=== PATIENT | male | born 1950 | race Caucasian/White ===

== ENCOUNTER → 2016-12-15 | Outpatient (CLI) | payer MEDICARE, OTHER ==
[~2016-12-15] MED LIST: ACET1TAB86 PO; AMIO200T PO; ASPI325T PO; COEN100C; COMMODE 3-IN-11 MIS; DOCU1CAP39 PO; METO25TA3 PO; NITR0.4S SL; OMEG1CAP53 PO; PRAV10TA PO; SIMV5TAB3 PO; THERM PO; VITA100036 PO
[2016-12-15 13:07] LABS: ANION GAP 7 MEQ/L (5-15); AST (GOT) 22 U/L (15-37); BICARBONATE 26.7 MEQ/L (21.0-32.0); BLOOD UREA NITROGEN 17 MG/DL (7-18); CHLORIDE 106 MEQ/L (98-107); GLOMERULAR FILTRATION RATE 91 ML/MIN (>89); GLUCOSE,FASTING 93 MG/DL (74-99); POTASSIUM 4.7 MEQ/L (3.5-5.1); SODIUM (NA) 140 MEQ/L (136-145)
[2016-12-15 13:14] LABS: ALKALINE PHOSPHATASE 49 U/L (45-117); ALT (GPT) 46 U/L (12-78); HDL CHOLESTEROL 30.4 MG/DL (40.0-60.0); LDL CHOLESTEROL 83 MG/DL (0-99); TOTAL BILIRUBIN ADULT 0.6 MG/DL (0.2-1.0)
[2016-12-15 13:32] LABS: HEMATOCRIT 46.9 % (39.0-51.0); MEAN CELL VOLUME 86.9 FL (80.0-100.0); MEAN CORPUSCULAR HEMOGLOBIN 29.6 PG (27.0-34.0); PLATELET COUNT 175 TH/MM3 (150-450); REVIEW FLAG FINAL; WHITE BLOOD COUNT 7.1 TH/MM3 (4.0-11.0)
== END ==
LOC: PLAB 08:11
PROVIDERS: ATTEND Psychiatry & Neurology Neurology
DX: I63.30 Cerebral infarction due to thrombosis of unspecified cerebral artery (principal); I63.50 Cerebral infarction due to unspecified occlusion or stenosis of unspecified cerebral artery; M31.6 Other giant cell arteritis; Z68.29 Body mass index [BMI] 29.0-29.9, adult; E78.5 Hyperlipidemia, unspecified; I10 Essential (primary) hypertension; I70.213 Atherosclerosis of native arteries of extremities with intermittent claudication, bilateral legs; I71.4 Abdominal aortic aneurysm, without rupture
CPT/HCPCS: 36415; 80053; 80061; 82607; 83921; 84443; 85027

== ENCOUNTER → 2017-02-03 | Outpatient (CLI) | payer MEDICARE, OTHER ==
[2017-02-03 13:18] LABS: ALKALINE PHOSPHATASE 55 U/L (45-117); ALT (GPT) 44 U/L (12-78); ANION GAP 7 MEQ/L (5-15); AST (GOT) 20 U/L (15-37); BICARBONATE 26.7 MEQ/L (21.0-32.0); BLOOD UREA NITROGEN 18 MG/DL (7-18); CHLORIDE 106 MEQ/L (98-107); GLOMERULAR FILTRATION RATE 84 ML/MIN (>89); GLUCOSE,FASTING 94 MG/DL (74-99); HDL CHOLESTEROL 37.9 MG/DL (40.0-60.0); LDL CHOLESTEROL 79 MG/DL (0-99); POTASSIUM 4.4 MEQ/L (3.5-5.1); SODIUM (NA) 140 MEQ/L (136-145); TOTAL BILIRUBIN ADULT 1.1 MG/DL (0.2-1.0)
== END ==
LOC: PLAB 08:53
PROVIDERS: ATTEND Internal Medicine Interventional Cardiology
DX: I65.23 Occlusion and stenosis of bilateral carotid arteries (principal); E78.2 Mixed hyperlipidemia; Z79.899 Other long term (current) drug therapy
CPT/HCPCS: 36415; 80053; 80061

== ENCOUNTER 2017-02-15 08:59 | Inpatient (IN) | payer MEDICARE, OTHER ==
[2017-02-15] VITALS (10 sets, daily range): BP systolic 136–159; BP diastolic 97–104; PULSE 63–98; RESP 18; TEMP 98–99; O2SAT 97–98
[~2017-02-15] VITALS: Ht 170.2 cm; Wt 92.9 kg
[~2017-02-15 08:59] MED LIST changes: -ACET1TAB86 PO; -AMIO200T PO; -COMMODE 3-IN-11 MIS; -DOCU1CAP39 PO; -NITR0.4S SL; -PRAV10TA PO; -SIMV5TAB3 PO; -THERM PO
[2017-02-15] MEDS ORDERED: ASPIRIN 325 MG TAB PO SCH (09:30)
[2017-02-15] MEDS ORDERED: SIMV5TAB3 PO (09:44)
[2017-02-15] MEDS ORDERED: NITR0.4S SL (09:44)
[2017-02-15] MEDS: NS 1000P @30 MLS/HR (KVO) IV SCH ×2 (10:00→16:34)
[2017-02-15 10:02] LABS: AUTOMATED NEUTROPHIL # 4.3 TH/MM3 (1.8-7.7); BASOPHIL # 0.1 TH/MM3 (0-0.2); BASOPHIL % 0.9 % (0.0-2.0); EOSINOPHIL # 0.2 TH/MM3 (0-0.4); EOSINOPHIL % 2.2 % (0.0-4.0); HEMATOCRIT 45.8 % (39.0-51.0); HEMO FLAGS DIFF FINAL; LYMPH % 27.7 % (9.0-44.0); LYMPHOCYTE # 1.9 TH/MM3 (1.0-4.8); MEAN CELL VOLUME 86.3 FL (80.0-100.0); MEAN CORPUSCULAR HEMOGLOBIN 29.2 PG (27.0-34.0); MEAN CORPUSCULAR HGB CONC 33.8 % (32.0-36.0); MONO % 7.7 % (0.0-8.0); NEUT % 61.5 % (16.0-70.0); PLATELET COUNT 177 TH/MM3 (150-450); RED BLOOD COUNT 5.31 MIL/MM3 (4.50-5.90); RED CELL DISTRIBUTION WIDTH 13.8 % (11.6-17.2)
[2017-02-15 10:10] LABS: APTT (PATIENT) 28.1 SEC (24.3-30.1); PROTHROMBIN TIME - PATIENT 11.5 SEC (9.8-11.6)
[2017-02-15 10:26] LABS: BICARBONATE 24.7 MEQ/L (21.0-32.0)
[2017-02-15] MEDS ORDERED: HEPARIN-NS/PF INJ 500 ML ONE (10:26)
[2017-02-15] MEDS ORDERED: diphenhydrAMINE HCL 50 MG/ML VIAL ONE (10:27)
[2017-02-15 10:29] LABS: POTASSIUM 4.8 MEQ/L (3.5-5.1)
[2017-02-15] MEDS ORDERED: HEPARIN SODIUM - IV 10,000 UNITS/10 ML VIAL ONE (10:37)
[2017-02-15] MEDS ORDERED: PROTAMINE SULFATE 50 MG/5 ML VIAL ONE (11:20)
[2017-02-15] MEDS ORDERED: NITROGLYCERIN 2% OINT 1 GM PACKET ONE (11:27)
--- NOTE | 2017-02-15 11:30 | EKG ---
Date Performed: 02/15/2017 Time Performed: 09:57:02 PTAGE: 66 years EKG: Sinus rhythm with PAC(s). Possible inferior infarct - age undetermined Abnormal ECG NO PREVIOUS TRACING DOCTOR: Naman Stevenson Interpretating Date/Time 02/15/2017 11:28:09
[2017-02-15] MEDS ORDERED: CEFAZOLIN INJ 500 MG in SODIUM CHLORIDE 0.9% IRR BTL 500 ML IRRIGATION SCH (12:15)
[2017-02-15] MEDS ORDERED: INSULIN REGULAR (IV INFUSION) 100 UNITS in SODIUM CHLORIDE 0.9% INJ 100 ML IV SCH (12:15)
[2017-02-15] MEDS ORDERED: ceFAZolin 2 GM PREMIX 50 ML IV SCH (12:15)
[2017-02-15] MEDS ORDERED: METOPROLOL TARTRATE 25 MG TAB PO SCH (12:15)
[2017-02-15] MEDS ORDERED: CHLORHEXIDINE GLUCONATE 4% SOLN 120 ML BTL TOPICAL SCH (12:15)
[2017-02-15] MEDS ORDERED: PAPAVERINE INJ 60 MG, NITROGLYCERIN INJ 100 MCG, DILTIAZEM INJ 100 MG in SODIUM CHLORID... IRRIGATION SCH (12:15)
[2017-02-15] MEDS ORDERED: SODIUM CHLORIDE 0.9% FLUSH 10 ML FLUSH IV FLUSH PRN ×2 (12:15→12:30)
[2017-02-15] MEDS ORDERED: NITROGLYCERIN 0.4 MG SL 25 TABS/BTL SL PRN (12:30)
[2017-02-15] MEDS ORDERED: NALOXONE HCL 0.4 MG/ML AMP IV PRN (12:30)
[2017-02-15] MEDS ORDERED: ONDANSETRON HCL 4 MG/2 ML VIAL IVP PRN (12:30)
[2017-02-15] MEDS ORDERED: ACETAMINOPHEN 325 MG TAB PO PRN (12:30)
[2017-02-15] MEDS ORDERED: MAGNESIUM HYDROXIDE SUSP 30 ML CUP PO PRN (12:30)
--- NOTE | 2017-02-15 13:07 | PD.CAR.PN ---
CVT Progress Note Subjective/Hospital Course: pt seen and evaluated, full consultation to follow for CABG x 3 in am sts data discussed with pt RISK SCORES About the STS Risk Calculator Procedure: CAB Only Risk of Mortality: 1.072% Morbidity or Mortality: 11.943% Long Length of Stay: 4.647% Short Length of Stay: 49.285% Permanent Stroke: 1.809% Prolonged Ventilation: 7.853% DSW Infection: 0.386% Renal Failure: 1.27% Reoperation: 5.345% Objective: Vital Signs Date Time Temp Pulse Resp B/P Pulse Ox O2 Delivery O2 Flow Rate FiO2 02/15/17 11:53 99 Room Air 02/15/17 09:52 99.0 74 18 159/104 98 Labs: Laboratory Tests Test 02/15/17 09:46 White Blood Count 7.0 TH/MM3 (4.0-11.0) Red Blood Count 5.31 MIL/MM3 (4.50-5.90) Hemoglobin 15.5 GM/DL (13.0-17.0) Hematocrit 45.8 % (39.0-51.0) Mean Corpuscular Volume 86.3 FL (80.0-100.0) Mean Corpuscular Hemoglobin 29.2 PG (27.0-34.0) Mean Corpuscular Hemoglobin 33.8 % Concent (32.0-36.0) Red Cell Distribution Width 13.8 % (11.6-17.2) Platelet Count 177 TH/MM3 (150-450) Mean Platelet Volume 7.9 FL (7.0-11.0) Neutrophils (%) (Auto) 61.5 % (16.0-70.0) Lymphocytes (%) (Auto) 27.7 % (9.0-44.0) Monocytes (%) (Auto) 7.7 % (0.0-8.0) Eosinophils (%) (Auto) 2.2 % (0.0-4.0) Basophils (%) (Auto) 0.9 % (0.0-2.0) Neutrophils # (Auto) 4.3 TH/MM3 (1.8-7.7) Lymphocytes # (Auto) 1.9 TH/MM3 (1.0-4.8) Monocytes # (Auto) 0.5 TH/MM3 (0-0.9) Eosinophils # (Auto) 0.2 TH/MM3 (0-0.4) Basophils # (Auto) 0.1 TH/MM3 (0-0.2) CBC Comment DIFF FINAL Differential Comment Prothrombin Time 11.5 SEC (9.8-11.6) Prothromb Time International 1.0 RATIO Ratio Activated Partial 28.1 SEC Thromboplast Time (24.3-30.1) Sodium Level 140 MEQ/L (136-145) Potassium Level 4.8 MEQ/L (3.5-5.1) Chloride Level 107 MEQ/L (98-107) Carbon Dioxide Level 24.7 MEQ/L (21.0-32.0) Anion Gap 8 MEQ/L (5-15) Blood Urea Nitrogen 15 MG/DL (7-18) Creatinine 0.81 MG/DL (0.60-1.30) Estimat Glomerular Filtration 95 ML/MIN (>89) Rate Random Glucose 95 MG/DL (74-106) Calcium Level 10.0 MG/DL (8.5-10.1) Result Diagram: 02/15/17 0946 02/15/17 0946 Idalia Renteria February 15, 2017 13:07
--- NOTE | 2017-02-15 13:29 | MA ---
cc: MANUEL APPLE M.D., MANDEEP MD SUTTON, JAMES T. M.D. MARRESE, ROXY M.D. DATE OF PROCEDURE 02/15/2017 PROCEDURE 1. Left heart cath. 2. Coronary arteriogram. 3. Left ventriculogram. INVENTORY CONTROL/SHIPPING RECEIVING Manuel Apple MD INDICATION Progressive angina and abnormal nuclear stress study for inferior lateral wall ischemia with severe ischemia in that area. EQUIPMENT 6-Icelandic short sheath. 0.035 J guidewire. 6-Icelandic JL-4, JR-4 and pigtail diagnostic catheters. PROCEDURE After obtaining informed consent the right groin was prepped in the usual sterile fashion. 15 cc of 1% lidocaine were used for local anesthesia. Using the modified Seldinger technique the right femoral artery was cannulated and a 6-Icelandic short sheath was inserted in the right femoral artery. Using the above-mentioned diagnostic catheters selective coronary angiograms were performed. This was followed by left ventriculogram performed in the ROSEN view at ___ angle. The patient was given 6000 units of heparin accidentally in the sheath instead of 1000. Repeat ACT was 277 and this was partially reversed using protamine of 40 milligrams for the sheath to be pulled. The patient tolerated the procedure well without acute complication at the time of dictation. CARDIAC CATHETERIZATION FINDINGS HEMODYNAMIC Aortic pressure was 150/70 mmHg. Aortic pressure was 96 mmHg. There was no gradient across the aortic valve. Left ventricular end-diastolic pressure was around 20 mmHg. CORONARIES Right coronary was from right sinus of Valsalva, was quite tortuous and calcified. It is subtotal occlusion in the midportion with possibly a thrombus. The distal portion had a 60-70% disease, then it gave decent size PDA and PLV arteries. The PDA was small and tapered off quickly. The PLV was relatively good size with multiple smaller branches. With diffuse irregularities of 20-30%. The distal RCA was getting collaterals from the left system. Left main artery was left sinus of Valsalva. This had a distal 30% stenosis. Left circumflex branch from the left main artery is an ostial 10%, tortuous mid-area that was totally occluded OM ___ occlusion at the origin with collaterals filling from the LAD. The circumflex extended distally to give two small PLV branches and a tiny AV groove artery with mild diffuse irregularities. This mid-OM was filling with collaterals from the LAD and appears to be a decent target. Left anterior descending artery branched from the left main artery and tapered down in the midportion by about 30-40% distal to the origin of the mid diagonal branch, there was an 80 to 85% stenosis. The distal vessel was a descent target. There was a 40% disease distal to that, distal to the mid lesion, however, the distal vessel was extended to wrap around the apex. The mid diagonal had an ostial 30-40% and mild luminal irregularities of less than 20%, gave other diagonal septal branches with mild diffuse regularities of 20-30%. Left ventriculogram had multiple ectopic beats. There is mild diffuse hypokinesis but preserved LV systolic function. Ejection fraction visual estimates 50%. CONCLUSION CARDIAC CATHETERIZATION. 1. Significant triple vessel disease. 2. Low normal LV systolic function. 3. Elevated left ventricle end-diastolic pressure. RECOMMENDATIONS Evaluation for coronary artery bypass graft surgery with presumed grafts including TERRY to the LAD, SVG to OM of LCX and SVG to the distal RCA. Dr. Sarah Chery was contracted. MD CAROLE Moctezuma/LELO /11:31 AM /12:49 PM
--- NOTE | 2017-02-15 13:39 | MH ---
cc: SARAH CHERY DATE OF ADMISSION: 02/16/2017 DATE OF 1950 HISTORY OF PRESENT ILLNESS This is a 66 year-old male patient of Dr. Angelika Barnes, Dr. Garcia, Dr. Boo and Dr. Frances with a history of CVA in 2008 where he had some right leg weakness, some right arm weakness, uses a walker, had some slowed speech. Apparently was having some increased neurological symptoms and was evaluated by Dr. Frances. The patient was complaining of some bouts of shortness of breath not related to exertion and some throat tightness with some radiation to both shoulders. Apparently when he was riding his bike, he developed this throat tightness. He has had prior nuclear stress testing back in May of 2016 which had some borderline ST-segment depression, mild to moderate inferior lateral ischemia and then underwent cardiac cath. Because of the history of CVA, he has been following with Dr. Boo in regards to his carotid disease on the right internal carotid. He had a CTA of the carotids February 10, 2017 noted to be greater than 90% and recommended the cardiac cath to also be done and the evaluation of the coronary arteries prior to having the repair of his right carotid artery. He underwent cardiac cath today which showed left main 20% distal stenosis, mid distal LAD 80-85%, the OM 100%. The RCA 99% and the mid area EF of 50%. PAST MEDICAL HISTORY CVA in 2008 with right sided weakness and right arm weakness. He uses a walker. He has some slurring of his speech. His symptoms did initially improved and he apparently had some neurological symptoms that led to further follow up with Dr. Boo and Dr. Garcia. He had an MRI of the head in January 2016 revealing patent intracranial vessels. MRI of the brain was in 2016 and revealed an old area of infarct involving the basal ganglia on the left. No acute lesions. He is followed closely again by his neurologist and vascular surgeon. 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 He does not use oxygen and/or inhalers at home. PAST SURGICAL HISTORY Include: 1. Abdominal aortic aneurysm repair October 2010. 2. He has a stent in the right superficial femoral artery in 2008. 3. A deviated septum repair in 2009. 4. Colonoscopy 2003. ALLERGIES He has allergies to BACLOFEN, CRESTOR, LISINOPRIL, PLAVIX, PROCARDIA, LIPITOR, LOPRESSOR. He does, however, tolerate low-dose Simvastatin 5 mg and takes Lovaza. MEDICATIONS Home meds include: 1. Aspirin 325 p.o. daily 2. CO-Q10 3. Lovaza 1000 four times a day 4. Metoprolol 25 extended-release daily 5. Nitro 0.4 p.r.n. 6. Simvastatin 5 mg FAMILY HISTORY Father is alive at age of 92 with skin cancer history, throat cancer, prostate cancer. Mother from old age and Alzheimer's disease. SOCIAL HISTORY The patient is . He has one daughter he is estranged from. He does have a sister that will be his healthcare surrogate. Prior tobacco abuse. Smoked for a 35 pack-year history, quit eight years ago. No ETOH. He drinks about 8-10 cups of coffee per day. REVIEW OF SYSTEMS GENERAL: No night sweats, fever, heat and cold intolerance. SKIN: No psoriasis, itching or hives. HEENT: No blurred vision, hearing loss. RESPIRATORY: Occasional shortness of breath. CARDIOVASCULAR: As above in the HPI. GASTROINTESTINAL: No diarrhea or vomiting. GENITOURINARY: No burning frequency, urgency. EXPORT ADMINISTRATOR: No history of TIA. He has history of CVA. ENDOCRINOLOGY: No history of diabetes or hypothyroidism. PHYSICAL EXAM On exam, blood pressure 159/104, heart rate of 74, afebrile, O2 sat 98 on room air. Please note the patient did have a vagal response once they did follow right groin sheath out which was improved after an IV normal saline bolus. GENERAL: The patient is awake, alert in no acute distress. HEAD, EYES, EARS, NOSE, AND THROAT: Head is normocephalic, atraumatic. Pupils are equal and reactive. Oral mucosa pink, moist. NECK: Supple. No JVD. HEART: S1-S2 regular rate and rhythm. No rubs, murmurs, or gallops. LUNGS: Clear to auscultation. No wheezes, rales or rhonchi. ABDOMEN: Soft and nontender. No masses or organomegaly. EXTREMITIES: Reveal no cyanosis, clubbing or edema. I am only able to get Doppler pulses of his right and left posterior tibial arteries. LABORATORY FINDINGS Shows hemoglobin 15, hematocrit of 45, white cell count 7, platelet count 177. The sodium 140, potassium 4.8, BUN of 15, creatinine 0.8, glucose 95, INR 1.0. Further studies include an ultrasound of the lower extremities. He did have a CTA recently at [facility] which was discussed in the above. The left carotid artery was widely patent. IMPRESSION 1. This is a 66-year-old male with multivessel disease, also history of CVA, peripheral artery disease and history of right carotid stenosis. Procedures, alternatives and risks have been discussed with the patient. Planning will be for coronary artery bypass grafting in the a.m. In the meantime, we will can continue his home medications to control blood pressure. He is to continue on aspirin postsurgery. He is intolerant apparently to Plavix. 2. History of CVA. This will be discussed again further with Dr. Chery in regards to his right carotid stenosis and contacting Dr. Boo. EF on the cath was 50%, minimal and only trace valvular disease. Further planning per Dr. Sarah Chery. Dictated by SONYA Delgado MD OSMANI Morrissey/BROOKE /1:12 PM /11:22 AM
[2017-02-15] MEDS ORDERED: IOHEXOL 350 MG/ML 100 ML BTL (for Cath Lab) OTHER ONE (14:21)
--- NOTE | 2017-02-15 15:41 | RADRPT ---
EXAM DATE/TIME: 02/15/2017 13:29 [facility] COMPARISON: No previous studies available for comparison. INDICATIONS : PreOp cardiac surgery. MEDICAL HISTORY : Hyperlipidemia. Chest pressure. Abdominal aortic aneurysm. Hypertension. Asbestose exposure. PVD. SURGICAL HISTORY : Abdominal aortic aneurysm repair. ENCOUNTER: Initial ACUITY: 1 day PAIN SCORE: 0/10 LOCATION: Bilateral Legs TECHNIQUE: Venous ultrasound of the left and right leg was performed from the inguinal ligament to the proximal calf. Real-time, color Doppler and spectral tracing, compression and augmentation techniques were us ed. FINDINGS: RIGHT LEG: There is normal compressibility of the deep venous system from the inguinal region to the proximal ca lf. No echogenic clot is seen in the lumen of the common femoral, femoral, popliteal, and posterior tibial veins. There is a normal response of the venous system to proximal and distal augmentation an d respiration. LEFT LEG: There is normal compressibility of the deep venous system from the inguinal region to the proximal ca lf. No echogenic clot is seen in the lumen of the common femoral, femoral, popliteal, and posterior tibial veins. There is a normal response of the venous system to proximal and distal augmentation an d respiration. CONCLUSION: 1. No evidence of deep venous thrombosis. Walter Stubbs MD on February 15, 2017 at 15:39 Board Certified Radiologist. This report was verified electronically.
--- NOTE | 2017-02-15 15:49 | RADRPT ---
EXAM DATE/TIME: 02/15/2017 14:49 [facility] COMPARISON: No previous studies available for comparison. INDICATIONS : PreOp cardiac surgery. MEDICAL HISTORY : Hyperlipidemia. Chest pressure. Abdominal aortic aneurysm. Hypertension. Asbestose exposure. PVD. SURGICAL HISTORY : Abdominal aortic aneurysm repair. ENCOUNTER: Initial ACUITY: 1 day PAIN SCORE: 0/10 LOCATION: Bilateral Legs. GREATER SAPHENOUS VEIN THIGH: PROXIMAL: Right 6 mm Left 8 mm MID: Right 3 mm Left 2 mm DISTAL: Right 2 mm Left 2 mm CALF: PROXIMAL: Right 2 mm Left Non-visualized MID: Right 2 mm Left Non-visualized DISTAL: Right 1 mm Left Non-visualized FINDINGS: The venous system of the lower extremities are patent by color Doppler imaging. Measurements of the leg veins (in mm) are listed above. CONCLUSION: 1. Venous mapping as above Walter Stubbs MD on February 15, 2017 at 15:47 Board Certified Radiologist. This report was verified electronically.
[2017-02-15] MEDS: PRAVASTATIN SOD 10 MG TAB PO SCH (16:39)
[2017-02-15] MEDS: DOCUSATE SODIUM 100 MG CAP PO SCH ×2 (16:39→21:00)
[2017-02-15] MEDS: OMEGA 3 ACID ETHYL ESTERS PO SCH ×3 (17:04→21:00)
[2017-02-15 17:25] LABS: BLOOD, URINE NEG (NEG); COMMENT (UR) CULT NOT INDICATED; CULTURE IF INDICATED CULT NOT INDICATED; GLUCOSE,URINE NEG (NEG); KETONE, URINE NEG (NEG); MUCUS URINE FEW /lpf (OCC); NITRITE,URINE NEG (NEG); PH, URINE 6.5 (5.0-8.5); URINE COLOR LIGHT-YELLOW (YELLW/STRAW)
[2017-02-15 17:50] LABS: HEMOGLOBIN A1a 0.6 %; HEMOGLOBIN A1b 1.2 %; HEMOGLOBIN Ao 88.6 %; HEMOGLOBIN LA1C 1.8 %; HEMOGLOBIN P3 4.2 %
[2017-02-15] MEDS ORDERED: EPINEPHrine HCL (1:10,000) 1 MG/10 ML SYRINGE ONE (20:03)
[2017-02-15] MEDS ORDERED: ATROPINE SULFATE 1 MG/10 ML SYRINGE ONE (20:03)
[2017-02-15] MEDS: SODIUM CHLORIDE 0.9% FLUSH 10 ML FLUSH IV FLUSH SCH (21:00)
[2017-02-15] MEDS ORDERED: SODIUM CHLORIDE 0.9% FLUSH 10 ML FLUSH IV FLUSH SCH (21:00)
--- NOTE | 2017-02-15 21:03 | RADRPT ---
EXAM DATE/TIME: 02/15/2017 20:20 [facility] COMPARISON: No previous studies available for comparison. INDICATIONS : Evaluate for pneumothorax, pneumonia and communicable disease. Pre op CABG. MEDICAL HISTORY : Hyperlipidemia. Chest pressure. Abdominal aortic aneurysm. Hypertension. Asbestose exposure. PVD. SURGICAL HISTORY : Abdominal aortic aneurysm repair. Cardiac catherization. ENCOUNTER: Initial ACUITY: 1 day PAIN SCORE: 0/10 LOCATION: chest FINDINGS: The cardiac silhouette is enlarged in transverse diameter. The lungs are free of acute parenchymal op acity. No effusions are identified. Osseous structures are intact. CONCLUSION: Cardiomegaly. No acute cardiopulmonary disease. Walter Stubbs MD on February 15, 2017 at 21:01 Board Certified Radiologist. This report was verified electronically.
[2017-02-16] VITALS (19 sets, daily range): BP systolic 89–150; BP diastolic 8–98; PULSE 60–94; RESP 12–18; TEMP 97.5–98.4; O2SAT 94–100
[2017-02-16] MEDS ORDERED: PHENYLEPHRINE HCL 10 MG/ML VIAL IV ONE (05:00)
[2017-02-16] MEDS ORDERED: PROTAMINE SULFATE 250 MG/25 ML VIAL IV ONE (05:00)
[2017-02-16] MEDS ORDERED: NITROGLYCERIN-DEXTROSE INJ 250 ML IV ONE (05:00)
[2017-02-16] MEDS ORDERED: ceFAZolin INJ 1,000 MG VIAL IV ONE (05:00)
[2017-02-16] MEDS ORDERED: HEPARIN SODIUM - SQ 10,000 UNITS/ML VIAL SQ ONE (05:00)
[2017-02-16] MEDS ORDERED: MAGNESIUM SULFATE 1000 MG/2 ML VIAL (PED) IV ONE (05:00)
[2017-02-16] MEDS ORDERED: CALCIUM CHLORIDE 10% SOLN 1 GRAM/10 ML SYR IV ONE (05:00)
[2017-02-16] MEDS ORDERED: AMIODARONE INJ 150 MG in DEXTROSE 5% IN WATER 100ML INJ 100 ML IV ONE ×2 (05:00)
[2017-02-16] MEDS ORDERED: ARTIFICIAL TEARS OPTH OINT 3.5 APPLIC/3.5 GM TUBO ONE (05:00)
[2017-02-16] MEDS ORDERED: AMINOCAPROIC ACID INJ 250 MG/ML 20 ML VIAL IV ONE (05:00)
[2017-02-16] MEDS ORDERED: ACETAMINOPHEN 1000 MG/100 ML VIAL IV ONE (05:00)
[2017-02-16] MEDS ORDERED: PROPOFOL 1000 MG/100 ML INJ 100 ML IV ONE (05:00)
[2017-02-16] MEDS ORDERED: ESMOLOL HCL 100 MG/10 ML VIAL IV ONE (05:00)
[2017-02-16] MEDS ORDERED: methylPREDNISolone SOD SUCC 125 MG/2 ML VIAL ONE (06:32)
[2017-02-16] MEDS ORDERED: ceFAZolin 2 GM PREMIX 50 ML ONE (06:32)
[2017-02-16] MEDS ORDERED: VANCOMYCIN HCL 1000 MG VIAL ONE (06:32)
[2017-02-16] MEDS ORDERED: HEPARIN SODIUM - SQ 10,000 UNITS/ML VIAL ONE (06:32)
[2017-02-16] MEDS ORDERED: CARDIOPLEGIC IRR 1,000 ML ONE (07:11)
[2017-02-16] MEDS ORDERED: HEPARIN SODIUM - IV 10,000 UNITS/10 ML VIAL ONE (07:11)
[2017-02-16] MEDS ORDERED: POTASSIUM CHLORIDE 20 MEQ/10 ML VIAL ONE (07:11)
[2017-02-16] MEDS ORDERED: POTASSIUM CHLORIDE 40 MEQ/20 ML VIAL ONE (07:12)
[2017-02-16] MEDS ORDERED: ALBUMIN HUMAN 25% 12.5 GM/50 ML BAGP IV ONE (07:13)
[2017-02-16] MEDS ORDERED: MANNITOL INJ 50 ML ONE (07:14)
[2017-02-16] MEDS ORDERED: PROPOFOL 500 MG/50 ML BTL IV ONE (08:48)
[2017-02-16] MEDS ORDERED: NITROGLYCERIN 50 MG/DEXTROSE 5% SOLN 250 ML BTL IV ONE (08:48)
[2017-02-16] MEDS ORDERED: VECURONIUM BROMIDE 20 MG VIAL IV ONE (08:49)
[2017-02-16] MEDS ORDERED: LACTATED RINGER'S 1000 ML INJ 1,000 ML IV ONE (08:49)
[2017-02-16] MEDS ORDERED: NORMOSOL R INJ 2,000 ML IV ONE (08:49)
[2017-02-16] MEDS: DOCUSATE SODIUM 100 MG CAP PO SCH ×2 (09:00→21:35)
[2017-02-16] MEDS: SODIUM CHLORIDE 0.9% FLUSH 10 ML FLUSH IV FLUSH SCH ×2 (09:00→21:00)
[2017-02-16] MEDS: OMEGA 3 ACID ETHYL ESTERS PO SCH ×4 (09:00→21:00)
[2017-02-16] MEDS ORDERED: METOPROLOL TARTRATE 25 MG TAB PO SCH (09:00)
[2017-02-16] MEDS: PRAVASTATIN SOD 10 MG TAB PO SCH (09:00)
[2017-02-16] MEDS ORDERED: LACTATED RINGER'S 1000 ML INJ 500 ML IV PRN (10:48)
--- NOTE | 2017-02-16 10:58 | PD.OP ---
cc: Manuel Frances MD; Sarah Chery MD Operative Report Date of Surgery: February 16, 2017 Preoperative Diagnosis: (1) Unstable angina (2) CAD (coronary artery disease) Postoperative Diagnosis: same Procedure: CABG x 3 TERRY to LAD - good SVG to OM - good SVG to RCA - good EVH SUKHJINDER Anesthesia: Dr. Dominguez Surgeon: Sraah Chery Welfare Officer(s): Sunday Bal Operation and Findings: The risks, benefits, complications, treatment options, and expected outcomes were discussed with the patient. The possibilities of reaction to medication, pulmonary aspiration, perforation of viscus, bleeding, recurrent infection, the need for additional procedures, failure to diagnose a condition, and creating a complication requiring transfusion or operation were discussed with the patient. The patient concurred with the proposed plan, giving informed consent. The site of surgery properly noted/marked. The patient was taken to Operating Room, identified as Jose Hopson and the procedure verified as CABG, EVH, SUKHJINDER. A Time Out was held and the above information confirmed. Standard monitoring lines and Ghosh catheter were placed. General anesthesia was induced. The patient was prepped and draped in a sterile fashion. A median sternotomy was performed and electrocautery was used to obtain hemostasis. The left internal mammary artery was procured as a pedicle from the 7th rib to the 1st rib in the usual manner. Simultaneously left greater saphenous vein was procured from the left leg using a minimally invasive endoscopic technique. The vein was prepared for anastomosis and the leg wound was irrigated and closed in 2 layers. The pericardium was opened and a pericardial sling was created using interrupted 0 silk sutures. The patient was heparinized for cardiopulmonary bypass and the distal mammary pedicle was instrumented for anastomosis. The heart was instrumented for cardiopulmonary bypass in the usual manner. Antegrade blood cardioplegia was employed. The patient was placed on cardiopulmonary bypass. An aortic cross-clamp was applied and the heart was arrested using cold blood cardioplegia. Antegrade cardioplegia was administered after he each anastomosis. After adequate arrest, the distal right coronary circulation was investigated and the distal RCA was opened with a [place] blade and found to be a 1.5 millimeter good target. Saphenous vein was approximated to the RCA artery using a running 7 0 Prolene suture. The graft was measured for length and orientation and the proximal anastomosis was constructed to the ascending aorta using a running 5 0 Prolene suture after creating an aortotomy with a 5 millimeter punch. The 1st circumflex marginal artery was then opened with a [place] blade and found to be a 1.5 millimeter good target. Saphenous vein was approximated to the OM1 artery using a running 7 0 Prolene suture. The graft was measured for length and orientation and was suspended from the pericardium. The distal LAD was opened with a [place] blade and found to be a 1.5 millimeter good target. The left internal mammary artery was approximated to the LAD using a running 7 0 Prolene suture. The pedicle was attached to the epicardium using interrupted 5 0 silk suture. The patient was systemically rewarmed and received a hotshot dose of warm blood cardioplegia. The aorta was vented and the proximal anastomosis to the OM1 graft was accomplished using a running 5 0 Prolene suture after creating an aortotomy was a 5 millimeter punch. The cross -clamp was removed and all proximal and distal anastomoses were examined for hemostasis. The patient was weaned from cardiopulmonary bypass. Protamine was given. There was no adverse reaction. Decannulation was carried out without incident. Wound was checked for hemostasis which was obtained using electrocautery. A 36 Georgian mediastinal and 32 Georgian left pleural chest tubes were placed and secured to the skin with 0 silk suture. The sternum was closed with stainless steel wire. The fascia was closed with 1. PDS. The subcutaneous tissue was closed using a running 2-0 Vicryl suture. The skin was closed with 4- 0 Monocryl. Sterile dressings were placed. At the end of the operation, all sponge, instruments, and needle counts were correct. The patient was transferred to the CICU in stable condition. Findings: good distal targets. The saphenous vein conduit was small in caliber XC: 60 min CPB: 67 min Drains: mediastinal x 1 pleural x 1 Complications: none Disposition: to CVICU in stable condition Sarah Chery MD February 16, 2017 10:58
[2017-02-16] MEDS: METOCLOPRAMIDE HCL 10 MG/2 ML VIAL IV PUSH SCH ×3 (11:00→21:35)
[2017-02-16] MEDS ORDERED: MAGNESIUM SULFATE INJ 2 GM in SODIUM CHLORIDE 0.9% INJ 100 ML IV PRN ×4 (11:00)
[2017-02-16] MEDS ORDERED: ACETAMINOPHEN 650 MG SUPP RECTAL PRN (11:00)
[2017-02-16] MEDS ORDERED: POTASSIUM CHLORIDE 20 MEQ CONTROLLED RELEASE TAB PO PRN ×2 (11:00)
[2017-02-16] MEDS ORDERED: hydrALAZINE HCL 20 MG/ML VIAL IV PRN (11:00)
[2017-02-16] MEDS ORDERED: METOPROLOL TARTRATE 5 MG/5 ML VIAL IV PUSH PRN (11:00)
[2017-02-16] MEDS ORDERED: ACETAMINOPHEN 325 MG TAB PO PRN (11:00)
[2017-02-16] MEDS ORDERED: DEXTROSE 50% IN WATER 50 ML VIAL(D50) IV PUSH PRN (11:00)
[2017-02-16] MEDS ORDERED: Post-op Orders (for Pharmacy) MISC OTHER ONE (11:00)
[2017-02-16] MEDS ORDERED: CALCIUM CHLORIDE INJ 1 GM in SODIUM CHLORIDE 0.9% INJ 100 ML IV PRN (11:00)
[2017-02-16] MEDS ORDERED: RESP: ALBUTEROL 2.5 MG/IPRATROPIUM 0.5 MG NEB (PRN) NEB ×2 (11:00→18:15)
[2017-02-16] MEDS ORDERED: INSULIN REGULAR (IV INFUSION) 100 UNITS in SODIUM CHLORIDE 0.9% INJ 99 ML IV SCH (11:00)
[2017-02-16] MEDS ORDERED: ONDANSETRON HCL 4 MG/2 ML VIAL IV PUSH PRN (11:00)
[2017-02-16] MEDS ORDERED: CALCIUM CHLORIDE 10% 1 GRAM/10 ML VIAL IV PRN (11:00)
[2017-02-16] MEDS ORDERED: CLEVIDIPINE INJ 50 ML IV SCH (11:00)
[2017-02-16] MEDS ORDERED: POTASSIUM CHLOR 20 MEQ PREMIX 100 ML IV PRN ×2 (11:00)
[2017-02-16] MEDS ORDERED: MIDAZOLAM HCL 5 MG/5 ML VIAL ONE (12:18)
[2017-02-16] MEDS ORDERED: SUGAMMADEX SODIUM 200 MG/2 ML VIAL IV PUSH ONE ×2 (12:19)
[2017-02-16] MEDS ORDERED: fentaNYL CITRATE 1000 MCG/20 ML VIAL ONE (12:19)
--- NOTE | 2017-02-16 12:30 | RADRPT ---
EXAM DATE/TIME: 02/16/2017 12:04 [facility] COMPARISON: No previous studies available for comparison. INDICATIONS : S/p cabg. MEDICAL HISTORY : Hypertension. chest pressure. SURGICAL HISTORY : abdominal aneurysm surgery. ENCOUNTER: Initial ACUITY: 1 day PAIN SCORE: Non-responsive. LOCATION: Bilateral chest FINDINGS: The cardiac silhouette is enlarged in transverse diameter. Median sternotomy wires are present. Suppo rt lines and tubes are in satisfactory position. The lungs are free of acute parenchymal opacity. No effusions are identified. CONCLUSION: 1. Stable postoperative changes Walter Stubbs MD on February 16, 2017 at 12:28 Board Certified Radiologist. This report was verified electronically.
[2017-02-16] MEDS: ACETAMINOPHEN 1000 MG/100 ML VIAL IV SCH ×3 (12:32→23:10)
[2017-02-16] MEDS: AMIODARONE 200 MG TAB PO SCH ×2 (15:49→21:35)
[2017-02-16] MEDS ORDERED: RESP: ALBUTEROL 2.5 MG/IPRATROPIUM 0.5 MG NEB (SCH) NEB (16:00)
[2017-02-16] MEDS ORDERED: PHENYLEPHRINE HCL 10 MG/ML VIAL ONE (17:36)
[2017-02-16] MEDS: POTASSIUM CHLOR 20 MEQ PREMIX 100 ML IV PRN ×2 (17:57→22:28)
[2017-02-16] MEDS ORDERED: PHENYLEPHRINE 40 MG/D5W 496 ML ADMIX IV SCH ×2 (18:00)
[2017-02-16] MEDS ORDERED: TERBUTALINE INJ 1 MG/ML AMP SQ PRN (18:00)
[2017-02-16] MEDS ORDERED: RESP: RACEPINEPHRINE 2.25% 0.5 ML NEB NEB PRN (18:15)
[2017-02-16] MEDS: oxyCODONE/ACETAMINOPHEN 5 MG/325 MG TAB PO PRN (21:35)
[2017-02-16] MEDS: RESP: ALBUTEROL 2.5 MG/IPRATROPIUM 0.5 MG NEB (SCH) NEB (21:53)
[2017-02-17] VITALS (12 sets, daily range): BP systolic 98–125; BP diastolic 51–75; PULSE 82–110; RESP 18–20; TEMP 98.1–98.4; O2SAT 94–98
[2017-02-17] MEDS: oxyCODONE/ACETAMINOPHEN 5 MG/325 MG TAB PO PRN ×3 (00:36→16:50)
[2017-02-17] MEDS: RESP: ALBUTEROL 2.5 MG/IPRATROPIUM 0.5 MG NEB (SCH) NEB ×3 (03:51→19:44)
--- NOTE | 2017-02-17 05:23 | RADRPT ---
EXAM DATE/TIME: 02/17/2017 04:34 [facility] COMPARISON: CHEST SINGLE AP, February 16, 2017, 12:04. INDICATIONS : Post CABG. MEDICAL HISTORY : Hypertension. Aneurysm, abdominal. Asbestos exposure. PVD. SURGICAL HISTORY : Abdominal aortic aneurysm repair. Cardiac catheterization. ENCOUNTER: Subsequent ACUITY: 3 days PAIN SCORE: Non-responsive. LOCATION: Bilateral chest FINDINGS: Interval extubation and removal of NG tube. Central and left chest tube remain. Right central line in superior vena cava. Mild basilar airspace disease persists. CONCLUSION: 1. Interval extubation and removal of NG tube. Chest tube and right central line unchanged. Mild basi lar airspace disease. Flip Esteban MD on February 17, 2017 at 5:21 Board Certified Radiologist. This report was verified electronically.
[2017-02-17 05:24] LABS: HEMATOCRIT 37.5 % (39.0-51.0); MEAN CELL VOLUME 86.1 FL (80.0-100.0); MEAN CORPUSCULAR HEMOGLOBIN 29.4 PG (27.0-34.0); MEAN CORPUSCULAR HGB CONC 34.2 % (32.0-36.0); PLATELET COUNT 187 TH/MM3 (150-450); RED BLOOD COUNT 4.36 MIL/MM3 (4.50-5.90); RED CELL DISTRIBUTION WIDTH 13.9 % (11.6-17.2); REVIEW FLAG FINAL
[2017-02-17 05:40] LABS: BICARBONATE 23.9 MEQ/L (21.0-32.0); POTASSIUM 4.1 MEQ/L (3.5-5.1)
[2017-02-17] MEDS: ACETAMINOPHEN 1000 MG/100 ML VIAL IV SCH (06:00)
[2017-02-17] MEDS: AMIODARONE 200 MG TAB PO SCH ×3 (06:05→21:08)
[2017-02-17] MEDS: PANTOPRAZOLE SOD 40 MG DELAYED RELEASE TAB PO SCH (06:05)
[2017-02-17] MEDS: METOCLOPRAMIDE HCL 10 MG/2 ML VIAL IV PUSH SCH ×4 (06:05→21:08)
[2017-02-17] MEDS: SODIUM CHLORIDE 0.9% FLUSH 10 ML FLUSH IV FLUSH SCH ×2 (08:28→21:00)
[2017-02-17] MEDS ORDERED: GLUCAGON 1 MG/ML VIAL OTHER PRN (08:45)
[2017-02-17] MEDS ORDERED: DEXTROSE 50% IN WATER 50 ML VIAL(D50) IV PRN (08:45)
[2017-02-17] MEDS ORDERED: INSULIN DETEMIR 100 UNITS/ML VIAL SQ ONE (08:45)
[2017-02-17] MEDS ORDERED: SOD PHOSPHATE/SOD BIPHOSPHATE (ADULT) ENEMA 133ML RECTAL PRN (08:45)
[2017-02-17] MEDS ORDERED: BISACODYL 10 MG SUPP RECTAL PRN (08:45)
[2017-02-17] MEDS: ASPIRIN 81 MG CHEW TAB PO SCH (08:53)
[2017-02-17] MEDS: DOCUSATE SODIUM 100 MG CAP PO SCH ×2 (08:53→21:08)
[2017-02-17] MEDS: PRAVASTATIN SOD 10 MG TAB PO SCH (08:54)
[2017-02-17] MEDS: OMEGA 3 ACID ETHYL ESTERS PO SCH ×4 (08:54→21:00)
[2017-02-17] MEDS: MAGNESIUM HYDROXIDE SUSP 30 ML CUP PO SCH (08:57)
[2017-02-17] MEDS: MULTIVITAMINS/MINERALS THERAPEUTIC TAB PO SCH (08:57)
[2017-02-17] MEDS ORDERED: PILL SPLITTER OTHER PRN (09:00)
[2017-02-17] MEDS ORDERED: DOCUSATE SODIUM 100 MG CAP PO SCH (09:00)
[2017-02-17] MEDS: INSULIN ASPART SUPPLEMENTAL SCALE SQ SCH ×4 (09:46→21:24)
[2017-02-17] MEDS: METOPROLOL TARTRATE 25 MG TAB PO SCH ×2 (12:15→21:09)
--- NOTE | 2017-02-17 15:26 | PD.CAR.PN ---
CVT Progress Note Subjective/Hospital Course: 66/ male increased recent weakness, SOB, chest tightness, underwent cardiac cath by Dr Frances 80-85% mid distal LAD, 100% OM, 99% mid RCA EF 50% PMH CVA min left sided weakness HTN, PAD, Right carotid stenosis ( followed by Dr Boo, needs future CEA ) HLP 02/16 CABG x 3, TERRY to LAD - good, SVG to OM - good, SVG to RCA - good, EVH, SUKHJINDER extubated after surgery 02/17 weaned off Bridger gtt this am start low dose BB this afternoon gentle diuresis this afternoon CM to eval for rehab at discharge on statin , BB , ASA transfer to stepdown Objective: GENERAL: SKIN: Warm and dry. prevena to chest , incision intact left leg HEAD: Normocephalic. EYES: No scleral icterus. No injection or drainage. NECK: Supple, trachea midline. No JVD or lymphadenopathy. CARDIOVASCULAR: Regular rate and rhythm without murmurs, gallops, or rubs. RESPIRATORY: Breath sounds equal bilaterally. No accessory muscle use. chest tube to wall suction/ no air leak drained 270cc/ 12 hrs GASTROINTESTINAL: Abdomen soft, non-tender, nondistended. MUSCULOSKELETAL: No cyanosis, or edema. BACK: Nontender without obvious deformity. No CVA tenderness. Vital Signs Date Time Temp Pulse Resp B/P Pulse Ox O2 Delivery O2 Flow Rate FiO2 02/17/17 07:00 94 Nasal Cannula 2.00 02/17/17 07:00 82 02/17/17 07:00 98.2 84 18 98/64 94 116/60 02/17/17 03:00 98.2 100 18 111/51 94 111/51 02/17/17 03:00 101 02/16/17 23:00 92 02/16/17 23:00 98.4 91 16 105/65 95 116/54 02/16/17 19:56 94 Nasal Cannula 2.00 02/16/17 19:00 94 Nasal Cannula 2.00 02/16/17 19:00 97.9 77 18 144/98 94 103/55 02/16/17 19:00 78 02/16/17 18:34 94 21 Labs: Laboratory Tests Test 02/17/17 04:50 White Blood Count 19.0 TH/MM3 (4.0-11.0) Red Blood Count 4.36 MIL/MM3 (4.50-5.90) Hemoglobin 12.8 GM/DL (13.0-17.0) Hematocrit 37.5 % (39.0-51.0) Mean Corpuscular Volume 86.1 FL (80.0-100.0) Mean Corpuscular Hemoglobin 29.4 PG (27.0-34.0) Mean Corpuscular Hemoglobin 34.2 % Concent (32.0-36.0) Red Cell Distribution Width 13.9 % (11.6-17.2) Platelet Count 187 TH/MM3 (150-450) Mean Platelet Volume 8.3 FL (7.0-11.0) Sodium Level 140 MEQ/L (136-145) Potassium Level 4.1 MEQ/L (3.5-5.1) Chloride Level 108 MEQ/L (98-107) Carbon Dioxide Level 23.9 MEQ/L (21.0-32.0) Anion Gap 8 MEQ/L (5-15) Blood Urea Nitrogen 12 MG/DL (7-18) Creatinine 0.76 MG/DL (0.60-1.30) Estimat Glomerular Filtration 103 ML/MIN Rate (>89) Random Glucose 122 MG/DL (74-106) Calcium Level 8.4 MG/DL (8.5-10.1) Magnesium Level 2.0 MG/DL (1.5-2.5) Result Diagram: 02/17/1744902/17/17449 Telemetry: NSR (1) CAD (coronary artery disease) (2) S/P CABG x 3 Plan: ASA, statin, BB gentle diuresis OOB/ ambulate pulm toileting nebs, ezpap acapella consult OT CM for rehab at discharge (3) CVA (cerebral infarction) Plan: has hx of right carotid stenosis / will need outpt f/u with Dr Boo (4) Hypertension Plan: controlled (5) Peripheral vascular disease (6) Hyperlipemia Plan: on statin Idalia Renteria February 17, 2017 15:26
--- NOTE | 2017-02-17 20:57 | EKG ---
Date Performed: 02/17/2017 Time Performed: 06:52:04 PTAGE: 66 years EKG: CONSIDER ACUTE ST ELEVATION AR Sinus arrhythmia Short FL interval Inferior infarct - age undetermined Lateral ST elevation, CONSIDER ACUTE INFARCT Abnormal ECG PREVIOUS TRACING : 02/15/2017 09.57 Compared to prior tracing no significant change DOCTOR: Denny Sellers Interpretating Date/Time 02/17/2017 20:55:57
[2017-02-17] MEDS: SENNOSIDES 8.6 MG TAB PO SCH (21:08)
[2017-02-18] VITALS (28 sets, daily range): BP systolic 104–141; BP diastolic 70–93; PULSE 72–114; RESP 18–20; TEMP 98.2–98.6; O2SAT 91–97
[2017-02-18] MEDS: oxyCODONE/ACETAMINOPHEN 5 MG/325 MG TAB PO PRN ×3 (00:23→18:00)
[2017-02-18] MEDS: INSULIN ASPART SUPPLEMENTAL SCALE SQ SCH ×5 (01:32→21:00)
[2017-02-18] MEDS: AMIODARONE 200 MG TAB PO SCH ×3 (05:27→21:58)
[2017-02-18] MEDS: METOCLOPRAMIDE HCL 10 MG/2 ML VIAL IV PUSH SCH ×4 (05:27→20:16)
[2017-02-18] MEDS: PANTOPRAZOLE SOD 40 MG DELAYED RELEASE TAB PO SCH (05:27)
[2017-02-18 05:57] LABS: AUTOMATED NEUTROPHIL # 8.6 TH/MM3 (1.8-7.7); BASOPHIL % 0.2 % (0.0-2.0); EOSINOPHIL % 0.3 % (0.0-4.0); HEMATOCRIT 30.2 % (39.0-51.0); HEMO FLAGS DIFF FINAL; LYMPH % 12.1 % (9.0-44.0); LYMPHOCYTE # 1.4 TH/MM3 (1.0-4.8); MEAN CELL VOLUME 86.3 FL (80.0-100.0); MEAN CORPUSCULAR HEMOGLOBIN 30.2 PG (27.0-34.0); MONO % 10.8 % (0.0-8.0); NEUT % 76.6 % (16.0-70.0); PLATELET COUNT 128 TH/MM3 (150-450); WHITE BLOOD COUNT 11.2 TH/MM3 (4.0-11.0)
[2017-02-18 06:10] LABS: BICARBONATE 25.4 MEQ/L (21.0-32.0); POTASSIUM 4.2 MEQ/L (3.5-5.1)
[2017-02-18] MEDS: RESP: ALBUTEROL 2.5 MG/IPRATROPIUM 0.5 MG NEB (SCH) NEB ×3 (08:37→19:39)
[2017-02-18] MEDS: MAGNESIUM HYDROXIDE SUSP 30 ML CUP PO SCH (09:00)
[2017-02-18] MEDS: PRAVASTATIN SOD 10 MG TAB PO SCH (09:00)
[2017-02-18] MEDS: OMEGA 3 ACID ETHYL ESTERS PO SCH ×4 (09:00→20:16)
--- NOTE | 2017-02-18 09:18 | PD.CAR.PN ---
CVT Progress Note Subjective/Hospital Course: 66/ male increased recent weakness, SOB, chest tightness, underwent cardiac cath by Dr Frances 80-85% mid distal LAD, 100% OM, 99% mid RCA EF 50% PMH CVA min left sided weakness HTN, PAD, Right carotid stenosis ( followed by Dr Boo, needs future CEA ) HLP 02/16 CABG x 3, TERRY to LAD - good, SVG to OM - good, SVG to RCA - good, EVH, SUKHJINDER extubated after surgery 02/17 weaned off Bridger gtt this am start low dose BB this afternoon gentle diuresis this afternoon CM to eval for rehab at discharge on statin , BB , ASA transfer to stepdown 02/[address] Drained 310 mls past 24 hrs Ambulate Objective: Vital Signs Date Time Temp Pulse Resp B/P Pulse Ox O2 Delivery O2 Flow Rate FiO2 02/18/17 08:40 95 Nasal Cannula 3.00 02/18/17 07:00 93 02/18/17 06:00 102 02/18/17 05:00 82 02/18/17 04:13 98.6 97 125/81 95 02/18/17 04:00 96 02/18/17 03:00 77 02/18/17 02:00 72 02/18/17 01:00 90 02/18/17 00:38 98.3 100 128/93 91 02/18/17 00:00 108 02/17/17 23:00 86 02/17/17 22:00 110 02/17/17 20:00 110 02/17/17 19:47 96 Nasal Cannula 2.00 02/17/17 19:00 98.3 91 108/73 96 02/17/17 19:00 Nasal Cannula 2.00 40 02/17/17 19:00 93 02/17/17 18:00 98 02/17/17 17:55 18 02/17/17 17:00 107 02/17/17 16:00 99 02/17/17 16:00 98.4 88 20 116/72 97 02/17/17 15:00 90 02/17/17 12:00 90 02/17/17 12:00 98.1 88 20 125/75 98 Arterial Line Labs: Laboratory Tests Test 02/18/17 05:45 White Blood Count 11.2 TH/MM3 (4.0-11.0) Red Blood Count 3.50 MIL/MM3 (4.50-5.90) Hemoglobin 10.6 GM/DL (13.0-17.0) Hematocrit 30.2 % (39.0-51.0) Mean Corpuscular Volume 86.3 FL (80.0-100.0) Mean Corpuscular Hemoglobin 30.2 PG (27.0-34.0) Mean Corpuscular Hemoglobin 35.0 % Concent (32.0-36.0) Red Cell Distribution Width 14.0 % (11.6-17.2) Platelet Count 128 TH/MM3 (150-450) Mean Platelet Volume 7.9 FL (7.0-11.0) Neutrophils (%) (Auto) 76.6 % (16.0-70.0) Lymphocytes (%) (Auto) 12.1 % (9.0-44.0) Monocytes (%) (Auto) 10.8 % (0.0-8.0) Eosinophils (%) (Auto) 0.3 % (0.0-4.0) Basophils (%) (Auto) 0.2 % (0.0-2.0) Neutrophils # (Auto) 8.6 TH/MM3 (1.8-7.7) Lymphocytes # (Auto) 1.4 TH/MM3 (1.0-4.8) Monocytes # (Auto) 1.2 TH/MM3 (0-0.9) Eosinophils # (Auto) 0.0 TH/MM3 (0-0.4) Basophils # (Auto) 0.0 TH/MM3 (0-0.2) CBC Comment DIFF FINAL Differential Comment Sodium Level 138 MEQ/L (136-145) Potassium Level 4.2 MEQ/L (3.5-5.1) Chloride Level 104 MEQ/L (98-107) Carbon Dioxide Level 25.4 MEQ/L (21.0-32.0) Anion Gap 9 MEQ/L (5-15) Blood Urea Nitrogen 14 MG/DL (7-18) Creatinine 0.65 MG/DL (0.60-1.30) Estimat Glomerular Filtration 123 ML/MIN Rate (>89) Random Glucose 116 MG/DL (74-106) Calcium Level 8.6 MG/DL (8.5-10.1) Magnesium Level 2.0 MG/DL (1.5-2.5) Result Diagram: 02/18/17 0545 02/18/17 0545 (1) CAD (coronary artery disease) (2) S/P CABG x 3 Plan: ASA, statin, BB gentle diuresis OOB/ ambulate pulm toileting nebs, ezpap acapella consult OT CM for rehab at discharge (3) CVA (cerebral infarction) Plan: has hx of right carotid stenosis / will need outpt f/u with Dr Boo (4) Hypertension Plan: controlled (5) Peripheral vascular disease (6) Hyperlipemia Plan: on statin Benjamin Delarosa MD February 18, 2017 09:18
[2017-02-18] MEDS: POLYETHYLENE GLYCOL 17 GM PKG PO SCH (09:47)
[2017-02-18] MEDS: METOPROLOL TARTRATE 25 MG TAB PO SCH ×2 (09:48→20:16)
[2017-02-18] MEDS: DOCUSATE SODIUM 100 MG CAP PO SCH ×2 (09:48→20:15)
[2017-02-18] MEDS: MULTIVITAMINS/MINERALS THERAPEUTIC TAB PO SCH (09:49)
[2017-02-18] MEDS: ASPIRIN 81 MG CHEW TAB PO SCH (09:49)
[2017-02-18] MEDS: SODIUM CHLORIDE 0.9% FLUSH 10 ML FLUSH IV FLUSH SCH ×2 (09:49→20:15)
[2017-02-18] MEDS: SENNOSIDES 8.6 MG TAB PO SCH (20:15)
[2017-02-19] VITALS (27 sets, daily range): BP systolic 96–146; BP diastolic 67–98; PULSE 73–102; RESP 14–23; TEMP 97.4–98.6; O2SAT 94–97
[2017-02-19] MEDS: INSULIN ASPART SUPPLEMENTAL SCALE SQ SCH ×4 (05:41→21:00)
[2017-02-19] MEDS: PANTOPRAZOLE SOD 40 MG DELAYED RELEASE TAB PO SCH (06:14)
[2017-02-19] MEDS: METOCLOPRAMIDE HCL 10 MG/2 ML VIAL IV PUSH SCH ×4 (06:14→21:38)
[2017-02-19] MEDS: AMIODARONE 200 MG TAB PO SCH ×3 (06:15→21:51)
[2017-02-19] MEDS: RESP: ALBUTEROL 2.5 MG/IPRATROPIUM 0.5 MG NEB (SCH) NEB (08:00)
[2017-02-19] MEDS: oxyCODONE/ACETAMINOPHEN 5 MG/325 MG TAB PO PRN ×2 (08:54→16:32)
[2017-02-19] MEDS: OMEGA 3 ACID ETHYL ESTERS PO SCH ×4 (09:00→21:00)
--- NOTE | 2017-02-19 09:00 | PD.CAR.PN ---
CVT Progress Note Subjective/Hospital Course: 66/ male increased recent weakness, SOB, chest tightness, underwent cardiac cath by Dr Frances 80-85% mid distal LAD, 100% OM, 99% mid RCA EF 50% PMH CVA min left sided weakness HTN, PAD, Right carotid stenosis ( followed by Dr Boo, needs future CEA ) HLP 02/16 CABG x 3, TERRY to LAD - good, SVG to OM - good, SVG to RCA - good, EVH, SUKHJINDER extubated after surgery 02/17 weaned off Bridger gtt this am start low dose BB this afternoon gentle diuresis this afternoon CM to eval for rehab at discharge on statin , BB , ASA transfer to stepdown 02/[address] Drained 310 mls past 24 hrs Ambulate 02/19 D/C CT today Ambulate Discharge planning Objective: Vital Signs Date Time Temp Pulse Resp B/P Pulse Ox O2 Delivery O2 Flow Rate FiO2 02/19/17 07:00 100 02/19/17 06:00 100 02/19/17 05:00 84 02/19/17 04:00 98.4 96 14 129/73 95 02/19/17 04:00 88 02/19/17 03:00 96 02/19/17 02:00 102 02/19/17 01:00 98.6 91 16 96/67 94 02/19/17 01:00 86 02/19/17 00:00 79 02/18/17 23:00 76 02/18/17 22:00 86 02/18/17 21:00 86 02/18/17 20:00 82 02/18/17 20:00 98.6 88 18 119/71 94 02/18/17 20:00 94 Nasal Cannula 2.00 02/18/17 19:40 96 Nasal Cannula 2.00 02/18/17 19:00 77 02/18/17 18:00 104 02/18/17 17:00 102 02/18/17 16:00 80 02/18/17 16:00 98.6 95 20 141/76 95 02/18/17 15:00 88 02/18/17 14:00 84 02/18/17 13:00 80 02/18/17 12:50 18 02/18/17 12:00 98.2 77 20 104/70 97 02/18/17 12:00 76 02/18/17 11:00 80 02/18/17 10:00 106 02/18/17 09:00 114 Result Diagram: 02/18/17 0545 02/18/17 0545 (1) CAD (coronary artery disease) (2) S/P CABG x 3 Plan: ASA, statin, BB gentle diuresis OOB/ ambulate pulm toileting nebs, ezpap acapella consult OT CM for rehab at discharge (3) CVA (cerebral infarction) Plan: has hx of right carotid stenosis / will need outpt f/u with Dr Boo (4) Hypertension Plan: controlled (5) Peripheral vascular disease (6) Hyperlipemia Plan: on statin Benjamin Delarosa MD February 19, 2017 09:00
[2017-02-19] MEDS: DOCUSATE SODIUM 100 MG CAP PO SCH ×2 (09:32→21:38)
[2017-02-19] MEDS: ASPIRIN 81 MG CHEW TAB PO SCH (09:33)
[2017-02-19] MEDS: PRAVASTATIN SOD 10 MG TAB PO SCH (09:33)
[2017-02-19] MEDS: MULTIVITAMINS/MINERALS THERAPEUTIC TAB PO SCH (09:33)
[2017-02-19] MEDS: METOPROLOL TARTRATE 25 MG TAB PO SCH ×2 (09:33→21:38)
[2017-02-19] MEDS: POLYETHYLENE GLYCOL 17 GM PKG PO SCH (09:34)
[2017-02-19] MEDS: MAGNESIUM HYDROXIDE SUSP 30 ML CUP PO SCH (09:34)
[2017-02-19] MEDS: SODIUM CHLORIDE 0.9% FLUSH 10 ML FLUSH IV FLUSH SCH ×2 (09:34→21:38)
[2017-02-19] MEDS: SENNOSIDES 8.6 MG TAB PO SCH (21:38)
[2017-02-20] VITALS (19 sets, daily range): BP systolic 123–165; BP diastolic 77–94; PULSE 60–90; RESP 14–16; TEMP 97.4–98.4; O2SAT 95–98
[2017-02-20] MEDS: AMIODARONE 200 MG TAB PO SCH ×2 (06:04→15:12)
[2017-02-20] MEDS: PANTOPRAZOLE SOD 40 MG DELAYED RELEASE TAB PO SCH (06:04)
[2017-02-20] MEDS: METOCLOPRAMIDE HCL 10 MG/2 ML VIAL IV PUSH SCH ×3 (06:04→15:13)
[2017-02-20] MEDS: INSULIN ASPART SUPPLEMENTAL SCALE SQ SCH ×2 (06:35→11:49)
[2017-02-20] MEDS: SODIUM CHLORIDE 0.9% FLUSH 10 ML FLUSH IV FLUSH SCH (09:29)
[2017-02-20] MEDS: ASPIRIN 81 MG CHEW TAB PO SCH (09:29)
[2017-02-20] MEDS: OMEGA 3 ACID ETHYL ESTERS PO SCH ×2 (09:29→13:15)
[2017-02-20] MEDS: DOCUSATE SODIUM 100 MG CAP PO SCH (09:29)
[2017-02-20] MEDS: POLYETHYLENE GLYCOL 17 GM PKG PO SCH (09:30)
[2017-02-20] MEDS: MAGNESIUM HYDROXIDE SUSP 30 ML CUP PO SCH (09:30)
[2017-02-20] MEDS: METOPROLOL TARTRATE 25 MG TAB PO SCH (09:30)
[2017-02-20] MEDS: MULTIVITAMINS/MINERALS THERAPEUTIC TAB PO SCH (09:30)
[2017-02-20] MEDS: PRAVASTATIN SOD 10 MG TAB PO SCH (09:30)
[2017-02-20] MEDS ORDERED: AMIO200T PO (14:50)
[2017-02-20] MEDS ORDERED: METO25TA3 PO (14:50)
[2017-02-20] MEDS ORDERED: THERM PO (14:50)
[2017-02-20] MEDS ORDERED: DOCU1CAP39 PO (14:50)
--- NOTE | 2017-02-20 14:57 | HHI.DS ---
Discharge Summary Admission Date February 16, 2017 at 08:30 Discharge Date: February 20, 2017 Admitting Diagnosis chest pain , CAD (1) CAD (coronary artery disease) Diagnosis: Principal (2) Hyperlipemia Diagnosis: Principal (3) Peripheral vascular disease Diagnosis: Principal (4) Hypertension Diagnosis: Principal (5) CVA (cerebral infarction) Diagnosis: Principal (6) S/P CABG x 3 Diagnosis: Secondary Procedures CABG x 3 02/16/17 TERRY to LAD - good SVG to OM - good SVG to RCA - good EVH Brief History 66/ male increased recent weakness, SOB, chest tightness, underwent cardiac cath by Dr Frances 80-85% mid distal LAD, 100% OM, 99% mid RCA EF 50% PMH CVA min left sided weakness HTN, PAD, Right carotid stenosis ( followed by Dr Boo, needs future CEA ) P 02/16 CABG x 3, TERRY to LAD - good, SVG to OM - good, SVG to RCA - good, EVH, SUKHJINDER extubated after surgery CBC/BMP: 02/18/17 0545 02/18/17 0545 Significant Findings Laboratory Tests Test 02/18/17 05:45 White Blood Count 11.2 TH/MM3 (4.0-11.0) Red Blood Count 3.50 MIL/MM3 (4.50-5.90) Hemoglobin 10.6 GM/DL (13.0-17.0) Hematocrit 30.2 % (39.0-51.0) Platelet Count 128 TH/MM3 (150-450) Neutrophils (%) (Auto) 76.6 % (16.0-70.0) Monocytes (%) (Auto) 10.8 % (0.0-8.0) Neutrophils # (Auto) 8.6 TH/MM3 (1.8-7.7) Monocytes # (Auto) 1.2 TH/MM3 (0-0.9) Random Glucose 116 MG/DL (74-106) Imaging Last Impressions Chest X-Ray 02/17/17 0500 Signed Impressions: Service Date/Time: Friday, February 17, 2017 04:34 - CONCLUSION: 1. Interval extubation and removal of NG tube. Chest tube and right central line unchanged. Mild basilar airspace disease. Flip Esteban MD Lower Extremity Ultrasound 02/15/17 0000 Signed Impressions: Service Date/Time: Wednesday, February 15, 2017 14:49 - CONCLUSION: 1. Venous mapping as above Walter Stubbs MD PE at Discharge GENERAL: SKIN: Warm and dry.prevena to chest , incision intact to leg HEAD: Normocephalic. EYES: No scleral icterus. No injection or drainage. NECK: Supple, trachea midline. No JVD or lymphadenopathy. CARDIOVASCULAR: Regular rate and rhythm without murmurs, gallops, or rubs. RESPIRATORY: Breath sounds equal bilaterally. No accessory muscle use. GASTROINTESTINAL: Abdomen soft, non-tender, nondistended. MUSCULOSKELETAL: No cyanosis, or edema. BACK: Nontender without obvious deformity. No CVA tenderness. Hospital Course 02/16 CABG x 3, TERRY to LAD - good, SVG to OM - good, SVG to RCA - good, EVH, SUKHJINDER extubated after surgery 02/17 weaned off Bridger gtt this am start low dose BB this afternoon gentle diuresis this afternoon CM to eval for rehab at discharge on statin , BB , ASA transfer to stepdown 02/[address] Drained 310 mls past 24 hrs Ambulate 02/19 D/C CT today Ambulate Discharge planning 02/20 doing well, on room air pain controlled + BM stable for dc to rehab today Pt Condition on Discharge: Good Discharge Disposition: Disch w/ Home Health Serv Discharge Instructions DIET: Follow Instructions for: Heart Healthy Diet Activities you can perform: Shower Only-No Bath Activities to avoid: Strenuous Activity, Driving Additional Activity Instructio: no lifting >8 lbs or gallon of milk Follow up Referrals: Cardiology with Manuel Frances MD PCP Follow-up with Angelika Barnes Jr., MD Surgical with Sarah Chery MD Vascular Surgery with Eleuterio Boo MD New Orders: BASIC METABOLIC PROF - 2 Weeks CBC NO DIFF - 2 Weeks X-RAY CHEST PA & LAT - 2 Weeks New Medications: Amiodarone (Amiodarone) 200 Mg Tab 200 MG PO BID heart rhythm #28 Ref 0 TAB Docusate Sodium (Dok) 100 Mg Cap 100 MG PO Q12HR Constipation #60 CAP Metoprolol Tartrate (Metoprolol Tartrate) 25 Mg Tab 12.5 MG PO BID Blood Pressure Management #60 Ref 2 TAB Multiple Vitamins W/ Minerals (Thera M Plus) 1 Tab 1 TAB PO DAILY multi vitamin #30 TAB Continued Medications: Aspirin (Aspirin) 325 Mg Tab 325 MG PO DAILY #30 Ref 0 TAB Cholecalciferol (Vitamin D3) 1,000 Unit Cap 1000 UNITS PO DAILY Nutritional Supplement #1 Ref 0 BOTTLE Coenzyme Q10 (Ubidecarenone) (Coenzyme Q10 (Ubidecarenone)) 100 Mg Cap DAILY [id number] Ethyl Esters (Lovaza) 1 Gm Cap 1 MG PO QID Ref 0 CAP Simvastatin (Simvastatin) 5 Mg Tab 5 MG PO DAILY Cholesterol Management #30 Ref 0 TAB Discontinued Medications: Metoprolol Tartrate (Metoprolol Tartrate) 25 Mg Tab 12.5 MG PO DAILY #30 Ref 0 TAB Nitroglycerin SL (Nitrostat SL) 0.4 Mg Subl 0.4 MG SL DIRECTED 1 tablet under the tongue as needed for chest pain. Repeat every 5 minutes for a total of 3 DOSES or call 911 if NO relief. PRN CHEST PAIN #100 Ref 0 TAB.SL Idalia Renteria February 20, 2017 14:56
--- NOTE | 2017-02-21 09:56 | RSPPFT ---
DATE OF PROCEDURE: 02/15/17 COMMENTS: Spirometry demonstrates an FEV1 of 2.5 at 87% of predicted, FVC of 3.2 at 89%, FEF 25-75 is 75%. The PEF is 73%. Flow volume loops are unavailable. IMPRESSION: 1. Essentially normal spirometry.
[2017-03-01] MEDS ORDERED: COMMODE 3-IN-11 MIS (15:52)
[2017-03-02] MEDS ORDERED: VITA100036 PO (11:22)
[2017-03-02] MEDS ORDERED: THERM PO (11:22)
[2017-03-02] MEDS ORDERED: DOCU1CAP39 PO (11:22)
[2017-03-02] MEDS ORDERED: PRAV10TA PO (11:22)
[2017-03-02] MEDS ORDERED: ASPI325T PO (11:22)
[2017-03-02] MEDS ORDERED: METO25TA3 PO (11:22)
[2017-03-02] MEDS ORDERED: AMIO200T PO (11:22)
[2017-03-03] MEDS ORDERED: ACET1TAB86 PO (08:03)
== END 2017-02-20 16:20 | DRG 234 ==
LOC: HDOC 08:59 → HDIC 09:01 → HCIN 12:19 → HDOC 12:19 → HCIN 15:54 → HCIS 02-16 07:55 → HDOC 02-16 08:28 → UNDOADMIN 02-16 08:30 → HCIS 02-16 08:30 → HCVR 02-16 11:45 → HCIN 02-17 10:34 → HCVR 02-17 10:34 → UNDODISIN 02-20 16:20
PROVIDERS: ADMIT Internal Medicine Interventional Cardiology; ATTEND Internal Medicine Interventional Cardiology
PROC: 4A023N7 Measurement of Cardiac Sampling and Pressure, Left Heart, Percutaneous Approach (ICD-10-PCS; 2017-02-15)
PROC: B2111ZZ Fluoroscopy of Multiple Coronary Arteries using Low Osmolar Contrast (ICD-10-PCS; 2017-02-15)
PROC: B2151ZZ Fluoroscopy of Left Heart using Low Osmolar Contrast (ICD-10-PCS; 2017-02-15)
PROC: 02100Z9 Bypass Coronary Artery, One Artery from Left Internal Mammary, Open Approach (ICD-10-PCS; 2017-02-16)
PROC: 06BQ4ZZ Excision of Left Saphenous Vein, Percutaneous Endoscopic Approach (ICD-10-PCS; 2017-02-16)
PROC: 5A1221Z Performance of Cardiac Output, Continuous (ICD-10-PCS; 2017-02-16)
PROC: B246ZZ4 Ultrasonography of Right and Left Heart, Transesophageal (ICD-10-PCS; 2017-02-16)
PROC: 021109W Bypass Coronary Artery, Two Arteries from Aorta with Autologous Venous Tissue, Open Approach (ICD-10-PCS; principal; 2017-02-16 06:57)
DX: I25.110 Atherosclerotic heart disease of native coronary artery with unstable angina pectoris (principal); I25.82 Chronic total occlusion of coronary artery; I69.351 Hemiplegia and hemiparesis following cerebral infarction affecting right dominant side; I69.928 Other speech and language deficits following unspecified cerebrovascular disease; I73.9 Peripheral vascular disease, unspecified; I65.21 Occlusion and stenosis of right carotid artery; I10 Essential (primary) hypertension; E78.5 Hyperlipidemia, unspecified; Z77.090 Contact with and (suspected) exposure to asbestos; Z87.891 Personal history of nicotine dependence
CPT/HCPCS: 36430; 71010; 71020; 76937; 80048; 81001; 82948; 83036; 83735; 85002; 85014; 85025; 85027; 85610; 85730; 86850; 86900; 86901; 86920; 87641; 93005; 93318; 93458; 93970; 93998; 94002; 94010; 94150; 94640; 94664; 94667; 94668; C1769; C1893; J0131; J0171; J0282; J0461; J0690; J1200; J1644; J1815; J2150; J2250; J2370; J2405; J2440; J2720; J2765; J2930; J3010; J3370; J3475; J3480; J7030; J7120; P9016; P9047; Q9967

== ENCOUNTER → 2017-03-20 | Outpatient (CLI) | payer MEDICARE, OTHER ==
[~2017-03-20] MED LIST changes: +ACET1TAB86 PO; +AMIO200T PO; -COEN100C; +COMMODE 3-IN-11 MIS; +DOCU1CAP39 PO; +PRAV10TA PO; +THERM PO
[2017-03-20 17:45] LABS: POTASSIUM 4.5 MEQ/L (3.5-5.1)
== END ==
LOC: PLAB 15:09
PROVIDERS: ATTEND Internal Medicine Interventional Cardiology
DX: I10 Essential (primary) hypertension (principal)
CPT/HCPCS: 36415; 82565; 84132; 84295; 84520

== ENCOUNTER → 2017-04-10 | Outpatient (CLI) | payer MEDICARE, OTHER ==
[~2017-04-10] MED LIST changes: +COQ-100C5 PO
[2017-04-10 09:38] LABS: HDL CHOLESTEROL 35.4 MG/DL (40.0-60.0); INDIRECT BILIRUBIN 0.5 MG/DL (0.0-0.8); TOTAL BILIRUBIN ADULT 0.7 MG/DL (0.2-1.0)
== END ==
LOC: PLAB 06:51
PROVIDERS: ATTEND Internal Medicine Interventional Cardiology
DX: R94.39 Abnormal result of other cardiovascular function study (principal); I77.9 Disorder of arteries and arterioles, unspecified; I48.0 Paroxysmal atrial fibrillation; E78.2 Mixed hyperlipidemia; I10 Essential (primary) hypertension; R60.0 Localized edema; R07.89 Other chest pain; I63.9 Cerebral infarction, unspecified; Z68.30 Body mass index [BMI] 30.0-30.9, adult; Z79.899 Other long term (current) drug therapy
CPT/HCPCS: 36415; 80061; 80076; 82550

== ENCOUNTER → 2017-05-12 | Outpatient (CLI) | payer MEDICARE, OTHER ==
[~2017-05-12] MED LIST changes: -ACET1TAB86 PO; -AMIO200T PO; -COMMODE 3-IN-11 MIS; -DOCU1CAP39 PO
[2017-05-12 08:56] LABS: APTT (PATIENT) 29.9 SEC (24.3-30.1); INTERNATIONAL NORMALIZED RATIO 1.1 RATIO; PROTHROMBIN TIME - PATIENT 11.9 SEC (9.8-11.6)
[2017-05-12 09:30] LABS: AUTOMATED NEUTROPHIL # 3.4 TH/MM3 (1.8-7.7); BASOPHIL # 0.1 TH/MM3 (0-0.2); BASOPHIL % 1.2 % (0.0-2.0); EOSINOPHIL # 0.2 TH/MM3 (0-0.4); EOSINOPHIL % 3.8 % (0.0-4.0); HEMATOCRIT 45.1 % (39.0-51.0); HEMO FLAGS DIFF FINAL; LYMPH % 31.1 % (9.0-44.0); LYMPHOCYTE # 1.8 TH/MM3 (1.0-4.8); MEAN CELL VOLUME 83.9 FL (80.0-100.0); MEAN CORPUSCULAR HEMOGLOBIN 28.5 PG (27.0-34.0); MEAN CORPUSCULAR HGB CONC 33.9 % (32.0-36.0); MONO % 7.3 % (0.0-8.0); NEUT % 56.6 % (16.0-70.0); PLATELET COUNT 204 TH/MM3 (150-450); RED BLOOD COUNT 5.38 MIL/MM3 (4.50-5.90); RED CELL DISTRIBUTION WIDTH 14.4 % (11.6-17.2); WHITE BLOOD COUNT 5.9 TH/MM3 (4.0-11.0)
[2017-05-12 09:54] LABS: BICARBONATE 24.8 MEQ/L (21.0-32.0); POTASSIUM 4.2 MEQ/L (3.5-5.1)
== END ==
LOC: PLAB 07:41
PROVIDERS: ATTEND Surgery Vascular Surgery
DX: I65.23 Occlusion and stenosis of bilateral carotid arteries (principal); I70.213 Atherosclerosis of native arteries of extremities with intermittent claudication, bilateral legs; R60.0 Localized edema; I87.2 Venous insufficiency (chronic) (peripheral)
CPT/HCPCS: 36415; 80048; 85025; 85610; 85730

== ENCOUNTER → 2017-06-01 | Outpatient (CLI) | payer MEDICARE, OTHER ==
[2017-06-01 09:20] LABS: HEMATOCRIT 44.9 % (39.0-51.0); MEAN CELL VOLUME 83.8 FL (80.0-100.0); MEAN CORPUSCULAR HEMOGLOBIN 28.4 PG (27.0-34.0); MEAN CORPUSCULAR HGB CONC 33.9 % (32.0-36.0); PLATELET COUNT 211 TH/MM3 (150-450); RED BLOOD COUNT 5.36 MIL/MM3 (4.50-5.90); RED CELL DISTRIBUTION WIDTH 15.2 % (11.6-17.2); REVIEW FLAG FINAL; WHITE BLOOD COUNT 6.8 TH/MM3 (4.0-11.0)
[2017-06-01 09:46] LABS: ANION GAP 8 MEQ/L (5-15); AST (GOT) 21 U/L (15-37); BICARBONATE 25.1 MEQ/L (21.0-32.0); BLOOD UREA NITROGEN 9 MG/DL (7-18); CHLORIDE 106 MEQ/L (98-107); GLOMERULAR FILTRATION RATE 119 ML/MIN (>89); GLUCOSE,FASTING 89 MG/DL (74-99); POTASSIUM 4.1 MEQ/L (3.5-5.1); SODIUM (NA) 139 MEQ/L (136-145)
[2017-06-01 09:47] LABS: ALT (GPT) 33 U/L (12-78)
[2017-06-01 09:56] LABS: ALKALINE PHOSPHATASE 76 U/L (45-117); HDL CHOLESTEROL 36.4 MG/DL (40.0-60.0); LDL CHOLESTEROL 86 MG/DL (0-99); TOTAL BILIRUBIN ADULT 0.8 MG/DL (0.2-1.0)
== END ==
LOC: PLAB 06:54
PROVIDERS: ATTEND Family Medicine
DX: I63.50 Cerebral infarction due to unspecified occlusion or stenosis of unspecified cerebral artery (principal); E78.5 Hyperlipidemia, unspecified; I10 Essential (primary) hypertension; I70.213 Atherosclerosis of native arteries of extremities with intermittent claudication, bilateral legs; I71.4 Abdominal aortic aneurysm, without rupture; Z12.5 Encounter for screening for malignant neoplasm of prostate; Z12.11 Encounter for screening for malignant neoplasm of colon; Z68.29 Body mass index [BMI] 29.0-29.9, adult
CPT/HCPCS: 36415; 80053; 80061; 84443; 85027; G0103

== ENCOUNTER → 2017-09-28 | Outpatient (CLI) | payer MEDICARE, OTHER ==
[~2017-09-28] MED LIST changes: +ASPI-183 PO; -ASPI325T PO; +CHOL10008 PO; -VITA100036 PO
[2017-09-28 09:12] LABS: HEMATOCRIT 45.5 % (39.0-51.0); HEMOGLOBIN 15.5 GM/DL (13.0-17.0); MEAN CELL VOLUME 84.1 FL (80.0-100.0); MEAN CORPUSCULAR HEMOGLOBIN 28.6 PG (27.0-34.0); MEAN PLATELET VOLUME 7.6 FL (7.0-11.0); PLATELET COUNT 211 TH/MM3 (150-450); RED BLOOD COUNT 5.41 MIL/MM3 (4.50-5.90); RED CELL DISTRIBUTION WIDTH 15.8 % (11.6-17.2); WHITE BLOOD COUNT 7.9 TH/MM3 (4.0-11.0)
[2017-09-28 09:32] LABS: ALBUMIN 3.7 GM/DL (3.4-5.0); AST (GOT) 20 U/L (15-37); BICARBONATE 23.1 MEQ/L (21.0-32.0); BLOOD UREA NITROGEN 16 MG/DL (7-18); CALCIUM 9.2 MG/DL (8.5-10.1); CHLORIDE 108 MEQ/L (98-107); CREATININE 0.77 MG/DL (0.60-1.30); GLOMERULAR FILTRATION RATE 101 ML/MIN (>89); GLUCOSE,FASTING 100 MG/DL (74-99); SODIUM (NA) 139 MEQ/L (136-145)
[2017-09-28 09:33] LABS: CHOLESTEROL 154 MG/DL (120-200)
[2017-09-28 09:44] LABS: ALKALINE PHOSPHATASE 70 U/L (45-117); ALT (GPT) 37 U/L (12-78); CHOLESTEROL/ HDL RATIO 3.92 RATIO; HDL CHOLESTEROL 39.2 MG/DL (40.0-60.0); LDL CHOLESTEROL 88 MG/DL (0-99); TOTAL BILIRUBIN ADULT 0.6 MG/DL (0.2-1.0); TOTAL PROTEIN 6.9 GM/DL (6.4-8.2); TRIGLYCERIDES 133 MG/DL (42-150)
== END ==
LOC: PLAB 07:03
PROVIDERS: ATTEND Internal Medicine Interventional Cardiology
DX: E78.2 Mixed hyperlipidemia (principal); I63.50 Cerebral infarction due to unspecified occlusion or stenosis of unspecified cerebral artery; E78.5 Hyperlipidemia, unspecified; I10 Essential (primary) hypertension; I70.213 Atherosclerosis of native arteries of extremities with intermittent claudication, bilateral legs; I71.4 Abdominal aortic aneurysm, without rupture; I25.10 Atherosclerotic heart disease of native coronary artery without angina pectoris; Z79.899 Other long term (current) drug therapy; Z98.890 Other specified postprocedural states; Z68.29 Body mass index [BMI] 29.0-29.9, adult; Z95.1 Presence of aortocoronary bypass graft
CPT/HCPCS: 36415; 80053; 80061; 82248; 84443; 85027

== ENCOUNTER → 2018-02-05 | Outpatient (CLI) | payer MEDICARE, OTHER ==
[2018-02-05 10:17] LABS: HEMATOCRIT 45.2 % (39.0-51.0); HEMOGLOBIN 15.8 GM/DL (13.0-17.0); MEAN CELL VOLUME 84.5 FL (80.0-100.0); MEAN CORPUSCULAR HEMOGLOBIN 29.5 PG (27.0-34.0); MEAN PLATELET VOLUME 7.4 FL (7.0-11.0); PLATELET COUNT 213 TH/MM3 (150-450); RED BLOOD COUNT 5.35 MIL/MM3 (4.50-5.90); RED CELL DISTRIBUTION WIDTH 13.8 % (11.6-17.2); REVIEW FLAG FINAL; WHITE BLOOD COUNT 7.5 TH/MM3 (4.0-11.0)
[2018-02-05 10:41] LABS: ALBUMIN 4.1 GM/DL (3.4-5.0); ANION GAP 10 MEQ/L (5-15); AST (GOT) 22 U/L (15-37); BICARBONATE 22.2 MEQ/L (21.0-32.0); BLOOD UREA NITROGEN 12 MG/DL (7-18); CALCIUM 9.8 MG/DL (8.5-10.1); CHLORIDE 107 MEQ/L (98-107); CREATININE 0.75 MG/DL (0.60-1.30); GLOMERULAR FILTRATION RATE 104 ML/MIN (>89); GLUCOSE,FASTING 91 MG/DL (74-99); POTASSIUM 4.4 MEQ/L (3.5-5.1); SODIUM (NA) 139 MEQ/L (136-145)
[2018-02-05 10:43] LABS: ALT (GPT) 53 U/L (12-78); CHOLESTEROL 141 MG/DL (120-200); TRIGLYCERIDES 121 MG/DL (42-150)
[2018-02-05 10:53] LABS: ALKALINE PHOSPHATASE 67 U/L (45-117); CHOLESTEROL/ HDL RATIO 4.07 RATIO; HDL CHOLESTEROL 34.6 MG/DL (40.0-60.0); LDL CHOLESTEROL 82 MG/DL (0-99); TOTAL BILIRUBIN ADULT 0.7 MG/DL (0.2-1.0); TOTAL PROTEIN 7.1 GM/DL (6.4-8.2)
== END ==
LOC: PLAB 08:31
DX: C43.62 Malignant melanoma of left upper limb, including shoulder (principal); I63.50 Cerebral infarction due to unspecified occlusion or stenosis of unspecified cerebral artery; E78.5 Hyperlipidemia, unspecified; I10 Essential (primary) hypertension; I70.213 Atherosclerosis of native arteries of extremities with intermittent claudication, bilateral legs; I71.4 Abdominal aortic aneurysm, without rupture; I25.10 Atherosclerotic heart disease of native coronary artery without angina pectoris; Z98.890 Other specified postprocedural states; Z95.1 Presence of aortocoronary bypass graft; Z68.29 Body mass index [BMI] 29.0-29.9, adult
CPT/HCPCS: 36415; 80053; 80061; 84443; 85027